=== PATIENT | male | born 2000 | race Caucasian/White ===

== ENCOUNTER 2021-04-24 10:23 | Emergency (ER) | payer OTHER ==
[~2021-04-24 10:23] MED LIST: ERYTHROMYCIN O3.5 GM OU
[2021-04-24] MEDS ORDERED: ALBUTEROL2.5 MG/3 M INH (13:36)
[2021-04-24] MEDS ORDERED: MEDROL4 MG PO (13:36)
[2021-04-24] MEDS ORDERED: VENTOLIN HFA 66.7 GM INH (13:36)
== END 2021-04-24 14:00 | disposition home or self-care (01) ==
LOC: ER1 10:23
DX: J45.901 Unspecified asthma with (acute) exacerbation (principal)
CPT/HCPCS: 71045; 94640; 94664; 99285

== ENCOUNTER 2021-05-16 19:06 | Emergency (ER) | payer SELFPAY ==
[~2021-05-16 19:06] MED LIST changes: +ALBUTEROL2.5 MG/3 M INH; +MEDROL4 MG PO; +VENTOLIN HFA 66.7 GM INH
== END 2021-05-16 21:15 | disposition home or self-care (01) ==
LOC: ER1 19:06
DX: R11.2 Nausea with vomiting, unspecified (principal); Z20.822 Contact with and (suspected) exposure to COVID-19; J45.909 Unspecified asthma, uncomplicated
CPT/HCPCS: 99284; U0002

== ENCOUNTER 2022-03-13 18:31 | Emergency (ER) | payer SELFPAY ==
[2022-03-13 19:52] LABS: HEMOGLOBIN 14.3 gm/dl (14.0-17.5); RED BLOOD COUNT 4.96 M/UL (4.20-5.50); WHITE BLOOD COUNT 14.1 K/UL (4.5-11.0)
[2022-03-13 20:33] LABS: BUN/CREATININE RATIO 15 (0-10)
== END 2022-03-13 22:40 | disposition home or self-care (01) ==
LOC: ER1 18:31
PROVIDERS: Student in an Organized Health Care Education/Training Program
DX: R10.9 Unspecified abdominal pain (principal); J45.909 Unspecified asthma, uncomplicated
CPT/HCPCS: 80053; 81001; 85025; 99284